=== PATIENT | male | born 1940 | race Caucasian/White ===

== ENCOUNTER 2021-01-07 16:53 | Emergency (ER) | payer MEDICARE ==
[~2021-01-07] VITALS: Ht 175.3 cm; Wt 75.5 kg
[2021-01-07 17:09] VITALS: BP 172/79
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
[2021-01-07] MEDS ORDERED: PROPARACAINE OPHTH 0.5%, 15ML ONE (17:45)
[2021-01-07] MEDS ORDERED: FLUORESCEIN OPHTHALMIC 1 MG STRIP ONE (17:45)
[2021-01-07] MEDS ORDERED: PROPARACAINE OPHTH 0.5%, 15ML EACHEYE ONE (18:00)
[2021-01-07] MEDS ORDERED: FLUORESCEIN OPHTHALMIC 1 MG STRIP EACHEYE ONE (18:00)
--- NOTE | 2021-01-07 19:01 | NUR ---
REPORT GIVEN TO BOO FELICIANO
== END 2021-01-07 19:36 | disposition home or self-care (01) ==
LOC: ED 19:27
DX: H10.212 Acute toxic conjunctivitis, left eye (principal); H54.7 Unspecified visual loss; F17.210 Nicotine dependence, cigarettes, uncomplicated; Z77.098 Contact with and (suspected) exposure to other hazardous, chiefly nonmedicinal, chemicals
CPT/HCPCS: 99283; 99284; 99406

== ENCOUNTER 2021-03-06 12:31 | Emergency (ER) | payer MEDICARE ==
[~2021-03-06] VITALS: Ht 177.8 cm; Wt 73.8 kg
--- NOTE | 2021-03-06 13:22 | NUR ---
PT SITTING ON GURNEY CALMLY, WATCHING TV. NADN/VSS. CALL LIGHT WITHIN REACH. NO NEEDS AT THIS TIME
--- NOTE | 2021-03-06 13:30 | NUR ---
PT TO CT
[2021-03-06 14:39] VITALS: BP 162/82
--- NOTE | 2021-03-06 15:00 | NUR ---
Patient given discharge instructions and RX, they have confirmed that they understand the instructions. Patient ambulatory with steady gait.
== END 2021-03-06 15:01 | disposition home or self-care (01) ==
LOC: ED 14:50
DX: S22.32XA Fracture of one rib, left side, initial encounter for closed fracture (principal); I10 Essential (primary) hypertension; F17.210 Nicotine dependence, cigarettes, uncomplicated; W18.30XA Fall on same level, unspecified, initial encounter; Y93.89 Activity, other specified; Y92.009 Unspecified place in unspecified non-institutional (private) residence as the place of occurrence of the external cause; Y99.8 Other external cause status
CPT/HCPCS: 71250; 99284